=== PATIENT | female | born 1940 | race Caucasian/White ===

== ENCOUNTER 2017-12-05 16:54 | Emergency (ER) | payer OTHER ==
[~2017-12-05] VITALS: Ht 162.6 cm; Wt 70.3 kg
[2017-12-05] MEDS ORDERED: DIGOXIN125 MCG PO (17:05)
[2017-12-05] MEDS ORDERED: LIPITOR20 MG PO (17:06)
[2017-12-05] MEDS ORDERED: DILTIAZEM100 MG/100 PO (17:06)
[2017-12-05] MEDS ORDERED: XARELTO1 EACH PO (17:07)
== END 2017-12-05 21:19 | disposition home or self-care (01) ==
LOC: ER 16:54
DX: R42 Dizziness and giddiness (principal); R53.1 Weakness